=== PATIENT | female | born 1985 | race Caucasian/White ===

== ENCOUNTER → 2016-06-30 | Outpatient (CLI) | payer BC | LOC: RAD 14:05 | DX: R07.89 Other chest pain (principal); M41.84 Other forms of scoliosis, thoracic region | CPT/HCPCS: 71020 ==

== ENCOUNTER → 2020-11-26 | Outpatient (CLI) | payer BC | LOC: EXRD 10:53 | DX: E04.9 Nontoxic goiter, unspecified (principal); R59.0 Localized enlarged lymph nodes | CPT/HCPCS: 76536 ==

== ENCOUNTER → 2021-05-22 | Outpatient (CLI) | payer BC | LOC: EXRD 11:30 | DX: R22.1 Localized swelling, mass and lump, neck (principal) | CPT/HCPCS: 93880 ==